=== PATIENT | female | born 1995 | race Caucasian/White ===

== ENCOUNTER 2020-05-14 10:50 | Inpatient (IN) ==
--- NOTE | 2020-05-14 11:27 | History & Physical Report ---
Date of Service May 14, 2020 Assessment & Plan (1) Desires (vaginal after ) trial: Phyllis is a 24 y/o female currently at 40-3/7 WGA with an MELINA 05/11/20 as determined by LMP who is here for IOL and TOLAC. She is GBS+. - Patient's first delivery performed by PLTCS in 05/2018 at [facility] for non- reassuring heart tracings and post-dates. Patient would like to proceed with TOLAC. Benefits, risks, and alternatives to TOLAC discussed extensively in the office. Patient would still like to proceed. Anticipate . - Proceed with IOL with Pitocin protocol - GBS+: Proceed with intrapartum PCN - Patient considering epidural -- has been informed that she can request at any time should she desire further analgesia Blood type: O+, antibody negative Diet: NPO Code: FULL CODE (2) : (3) GBS (group B Streptococcus carrier), +RV culture, currently : History of Present Illness Primary Care Provider: Jeff Cooper Capp, DO Phyllis is a 24 y/o female currently at 40-3/7 WGA with an MELINA 05/11/20 as determined by LMP who is here for IOL and TOLAC. Her has otherwise been uncomplicated. Her first delivery in 2017 was performed via PLTCS at [facility] (see scanned operative report 05/16/2018) in the setting of non-reassuring heart tracings and post-dates. Denies contractions; good movement; denies fluid loss; no bloody show Had regular appointments with OB. Labs: (Date 10/10/19) Blood type: O+ Antibody screen: negative H.8 Hct: 41.2 WBC: 10.3 Plt: 208 Rubella: immune VDRL/RPR: NR Gonorrhea: not detected Chlamydia: not detected HIV: negative HbSAg: negative GBS: POSITIVE SARS-CoV-2 RT-PCR (04/27): Not detected Declined genetic screens, including cff-DNA, CF, SMA Allergies Allergy/AdvReac Type Severity Reaction Status Date / Time propylene glycol Allergy Rash Verified 05/14/20 13:09 Home Medications Home Medications Medication Instructions Recorded Confirmed Type prenat.vits,harshil,ylx-ctis-ncami 1 tab PO DAILY 10/02/19 05/14/20 History Patient History Medical History Encounter for anatomic survey Varicella vaccine Surgical History (Updated 05/14/20 @ 15:29 by Esperanza Grigsby MD) H/O section x1 [place] teeth removed Family History Mother Thyroid disease Preeclampsia Anxiety and depression Social History Smoking Status: Never smoker Second Hand Exposure: No; Hx Alcohol Use: No Hx Substance Use: No Preferred Language: [employer] Required: No Beliefs That Will Affect Care: None marital status: marital status details: Shankar Alexandre (21) [phone] Current Living Situation: Spouse and Family Current Living Situation Comment: lives with and son, 2 dogs current occupational status: unemployed current occupation: homemaker Other Information That Helps Us Care for You: No Feels Safe at Home: Yes Safety Concerns: Feels Safe At This Time Assistive Devices: None Review of Systems no fever, no chills and no sweats denies headache no dyspnea no chest pain, no dyspnea, no dyspnea at rest and no palpitations no dysuria no breast pain Physical Exam Physical Exam: General: Alert, oriented. No acute distress. Cardiac: Regular rate and rhythm, no murmurs/rubs/gallops. Respiratory: Clear to auscultation bilaterally a/p, no wheezes/rales/rhonchi. No increased work of breathing. Symmetrical chest rise. No respiratory distress. Pelvic: Dilation 1 cm; Effacement 25%; Station -[address] Grigsby Lower Extremities: No lower extremity edema or swelling. No deep calf pain. Manuel's negative bilaterally External FHT and external uterine monitors used; Category I tracing; +FHT variability; + accelerations; no decels. Supervising Physician Co-Signing Physician Notes Resident Physician Supervision Note: I interviewed and examined the patient. Discussed with Dr. Grullon and agree with findings and plan as documented in the note. Any exceptions or clarifications are listed here: Hx CSx1, prior LTCS 2/2 NRFHT. consent reviewed yesterday and again today in its entirety. Discussed benefits and risks of successful as well as indications, benefits, risks, alternatives to failed requiring CS with risks including infection, bleeding, injury to adjacent structures (bowel, bladder, ureters, blood vessels, nerves), possible need for life saving hysterectomy. Discussed risk of uterine rupture resulting in maternal and morbidity and mortality, including the above risks associated with CS. Discussed lower success rates with advancing GA. Pt verbalized understanding. Discussed that if she declines CS when recommended, she would be accepting risk of potential injury and/or to her and/or baby. Pt states that she will accept CS if medically recommended. Consent signed by pt, myself, and additional witness. Discussed use of horn bulb and oxytocin. EFW 7-7.5. SVE 08/30-50/-3, BSUS confirms cephalic position. Horn bulb placed, pt tolerated well. Start PCN for GBS+ Documented By: Esperanza Grigsby MD Resident Activity Tracking Resident Involvement: Resident Care Provided Care Provided: Adult Hospital Medicine and OB Delivery
[2020-05-14] MEDS ORDERED: PENICILLIN G POTASSIUM 6 MU in DEXTROSE 5% 250 ML IV STA (14:41)
[2020-05-14] MEDS ORDERED: OXYTOCIN 30 UNITS/500 ML BAG IV PRN (14:41)
[2020-05-14] MEDS: LACTATED RINGER'S 1,000 ML IV PRN ×2 (15:24→23:08)
[2020-05-14] MEDS: OXYTOCIN 30 UNITS/500 ML BAG IV PRN ×3 (15:27→21:45)
[2020-05-14 15:31] LABS: Hematocrit (blood only) 42.1 % (37-47); Hemoglobin 14.1 g/dL (12.0-16.0); Mean Corpuscular Volume 89.6 fL (80-100); Mean Platelet Volume 12.4 fL (7.4-10.4); Platelet Count 180 K/uL (130-400); RDW Coefficient of Variation 13.7 % (11.5-14.5); RDW Standard Deviation 45.3 fL (36.4-46.3); White Blood Count 10.99 K/uL (4.8-10.8)
[2020-05-14 15:40] LABS: Mean Corpuscular Hgb Conc 33.5 g/dL (32-36)
--- NOTE | 2020-05-14 17:05 | Labor Progress Brief Note ---
Date of Service May 14, 2020 Subjective Called to room shortly after 1645 due to decel, pit turned off and resuscitated with maternal repositioning and pit d/c. Subsequently improved to cat 1 tracing, was cat 1 prior to decel Assessment & Plan (1) Desires (vaginal after ) trial: VSS Fetus cat 1 upon improvement Labor - pit off, horn bulb still in place. Will restart pit once improved, continue to monitor GBS +, PCN started Epidural PRN (2) : (3) GBS (group B Streptococcus carrier), +RV culture, currently : Admission and Anticipated Discharge Date Admission Date: May 14, 2020 Physical Exam Constitutional: well developed and well nourished; no acute distress Genitourinary: OB Exam Monitor Tracing: + external FHT monitor used, + external uterine monitor used (irregular) and + category I (145/mod/+accel/- decel --> decel x 2-3 minutes --> 130/mod/+accel/-decel) Results & Data ([facility]) Vital Signs (Past 12 Hours) Vital Signs Temp Pulse Resp BP 05/14/20 16:28 71 103/57 L 05/14/20 15:28 71 112/65 05/14/20 13:03 97.9 F 72 18 120/72 05/14/20 13:02 72 120/72 Coding Level of Care Code None Diagnoses Desires (vaginal after ) trial O34.219 Z34.90 GBS (group B Streptococcus carrier), +RV culture, currently O99.820
--- NOTE | 2020-05-14 19:43 | Labor Progress Brief Note ---
Date of Service May 14, 2020 Subjective Horn bulb out Assessment & Plan (1) Desires (vaginal after ) trial: VSS Fetus cat 2 but reassuring Labor - s/p horn bulb, will augment with pit GBS +, PCN started Epidural PRN (2) : (3) GBS (group B Streptococcus carrier), +RV culture, currently : Admission and Anticipated Discharge Date Admission Date: May 14, 2020 Physical Exam Constitutional: well developed and well nourished; no acute distress Genitourinary: Manual OB Exam: + cervical dilation 3 cm, + cervical effacement 50% and + station -2 OB Exam Monitor Tracing: + external FHT monitor used, + external uterine monitor used (q3-4min) and + category II (135/mod/- accels/intermit variables) Results & Data ([facility]) Vital Signs (Past 12 Hours) Vital Signs Temp Pulse Resp BP 05/14/20 19:29 91 H 100/52 L 05/14/20 19:24 98.2 F 18 05/14/20 18:30 73 98/54 L 05/14/20 17:34 69 99/52 L 05/14/20 16:28 71 103/57 L 05/14/20 15:28 71 112/65 05/14/20 13:03 97.9 F 72 18 120/72 05/14/20 13:02 72 120/72 Coding Level of Care Code None Diagnoses Desires (vaginal after ) trial O34.219 Z34.90 GBS (group B Streptococcus carrier), +RV culture, currently O99.820
[2020-05-14] MEDS: PENICILLIN G POTASSIUM 3 MU in DEXTROSE 5% 100 ML IV PRN (19:50)
--- NOTE | 2020-05-14 22:29 | Labor Progress Brief Note ---
Date of Service May 14, 2020 Subjective Strip note Assessment & Plan (1) Desires (vaginal after ) trial: VSS Fetus cat 2 but reassuring and improved Labor - s/p horn bulb, will augment with pit. Pit was d/c'd once by nursing due to variable, restarted with cat 1 tracing. SVE by nursing reports slightly more dilated. Pit currently at 2 GBS +, PCN started Epidural PRN (2) : (3) GBS (group B Streptococcus carrier), +RV culture, currently : Admission and Anticipated Discharge Date Admission Date: May 14, 2020 Physical Exam Genitourinary: OB Exam Monitor Tracing: + external FHT monitor used, + external uterine monitor used (irreg ) and + category II (135/mod/+accel/rare variables, reassuring) Results & Data ([facility]) Vital Signs (Past 12 Hours) Vital Signs Temp Pulse Resp BP Pulse Ox 05/14/20 22:15 99.0 F 76 90/52 L 05/14/20 22:14 18 05/14/20 21:39 72 103/50 L 05/14/20 21:26 75 97 05/14/20 21:21 74 96 05/14/20 21:16 72 95 05/14/20 21:12 74 94 05/14/20 21:11 76 95 05/14/20 21:06 79 95 05/14/20 21:01 79 96 05/14/20 20:56 83 97 05/14/20 20:51 78 98 05/14/20 20:46 65 97 05/14/20 20:41 70 96 05/14/20 20:40 70 18 101/58 L 05/14/20 20:13 85 18 134/74 05/14/20 19:29 91 H 100/52 L 05/14/20 19:24 98.2 F 18 05/14/20 18:30 73 98/54 L 05/14/20 17:34 69 99/52 L 05/14/20 16:28 71 103/57 L 05/14/20 15:28 71 112/65 05/14/20 13:03 97.9 F 72 18 120/72 05/14/20 13:02 72 120/72 Coding Level of Care Code None Diagnoses Desires (vaginal after ) trial O34.219 Z34.90 GBS (group B Streptococcus carrier), +RV culture, currently O99.820
[2020-05-15] MEDS: PENICILLIN G POTASSIUM 3 MU in DEXTROSE 5% 100 ML IV PRN ×2 (00:09→03:34)
--- NOTE | 2020-05-15 02:48 | Labor Progress Brief Note ---
Date of Service May 15, 2020 Subjective Presented to room for cervical check. Nursing reports that patient underwent spontaneous rupture approximately 12:30AM, pt reports ctx worsened after Assessment & Plan (1) Desires (vaginal after ) trial: VSS Fetus cat 2 but improving Labor - s/p horn bulb, pit was at 3 with cat 2 tracing. Pit was d/c'd while patient had prolonged time in bathroom prior to forebag rupture. Following forebag rupture, large decel was noted to 60s with recovery by repositioning and O2. FSE and IUPC were placed at that time for more accurate monitoring. Will continue to monitor, restart pit if MVUs inadequate GBS +, PCN started Epidural PRN (2) : (3) GBS (group B Streptococcus carrier), +RV culture, currently : Admission and Anticipated Discharge Date Admission Date: May 14, 2020 Physical Exam Genitourinary: Manual OB Exam: + cervical dilation 4 cm, + cervical effacement 70%, + station -1 and + amniotic fluid (AROM forebag) clear OB Exam Monitor Tracing: + external FHT monitor used, + scalp electrode used (placed at this time), + external uterine monitor used (irreg ), + intra-uterine pressure catheter used (placed at this time) and + category II (135- 145/mod/+accel/intermit variables) Pit was turned off prior to forebag rupture due to prolonged time in bathroom. Large decel to 60s following forebag rupture, recovered with repositioning and O2 Results & Data ([facility]) Vital Signs (Past 12 Hours) Vital Signs Temp Pulse Resp BP Pulse Ox 05/15/20 02:34 71 101/54 L 05/15/20 02:31 98.1 F 18 05/14/20 23:52 74 99/54 L 05/14/20 23:03 74 99/50 L 05/14/20 22:15 99.0 F 76 90/52 L 05/14/20 22:14 18 05/14/20 21:39 72 103/50 L 05/14/20 21:26 75 97 05/14/20 21:21 74 96 05/14/20 21:16 72 95 05/14/20 21:12 74 94 05/14/20 21:11 76 95 05/14/20 21:06 79 95 05/14/20 21:01 79 96 05/14/20 20:56 83 97 05/14/20 20:51 78 98 05/14/20 20:46 65 97 05/14/20 20:41 70 96 05/14/20 20:40 70 18 101/58 L 05/14/20 20:13 85 18 134/74 05/14/20 19:29 91 H 100/52 L 05/14/20 19:24 98.2 F 18 05/14/20 18:30 73 98/54 L 05/14/20 17:34 69 99/52 L 05/14/20 16:28 71 103/57 L 05/14/20 15:28 71 112/65 Coding Level of Care Code None Diagnoses Desires (vaginal after ) trial O34.219 Z34.90 GBS (group B Streptococcus carrier), +RV culture, currently O99.820
[2020-05-15] MEDS: OXYTOCIN 30 UNITS/500 ML BAG IV PRN (03:37)
--- NOTE | 2020-05-15 04:39 | Labor Progress Brief Note ---
Date of Service May 15, 2020 Subjective Breathing through contractions Assessment & Plan (1) Desires (vaginal after ) trial: VSS Fetus cat 2 Labor - s/p horn bulb, pit at 2 with internal monitors. Discussed obtaining epidural to possibly help with progressing, pt will consider with next check if unchanged. Discussed measures and concerns regarding progression of labor, pt verbalized understanding GBS +, PCN per protocol Epidural PRN (2) : (3) GBS (group B Streptococcus carrier), +RV culture, currently : Admission and Anticipated Discharge Date Admission Date: May 14, 2020 Physical Exam Genitourinary: Manual OB Exam: + cervical dilation 4 cm, + cervical effacement 70%, + station -1 and + amniotic fluid meconium OB Exam Monitor Tracing: + scalp electrode used (placed at this time), + intra-uterine pressure catheter used (placed at this time) and + category II (135-145/mod/-accel/early and variable decels) Results & Data ([facility]) Vital Signs (Past 12 Hours) Vital Signs Temp Pulse Resp BP Pulse Ox 05/15/20 04:20 78 102/59 L 05/15/20 03:43 71 99/66 L 05/15/20 02:34 71 101/54 L 05/15/20 02:31 98.1 F 18 05/14/20 23:52 74 99/54 L 05/14/20 23:03 74 99/50 L 05/14/20 22:15 99.0 F 76 90/52 L 05/14/20 22:14 18 05/14/20 21:39 72 103/50 L 05/14/20 21:26 75 97 05/14/20 21:21 74 96 05/14/20 21:16 72 95 05/14/20 21:12 74 94 05/14/20 21:11 76 95 05/14/20 21:06 79 95 05/14/20 21:01 79 96 05/14/20 20:56 83 97 05/14/20 20:51 78 98 05/14/20 20:46 65 97 05/14/20 20:41 70 96 05/14/20 20:40 70 18 101/58 L 05/14/20 20:13 85 18 134/74 05/14/20 19:29 91 H 100/52 L 05/14/20 19:24 98.2 F 18 05/14/20 18:30 73 98/54 L 05/14/20 17:34 69 99/52 L Coding Level of Care Code None Diagnoses Desires (vaginal after ) trial O34.219 Z34.90 GBS (group B Streptococcus carrier), +RV culture, currently O99.820
[2020-05-15] MEDS ORDERED: ePHEDrine sulfate 50 MG/ML AMP ONE (05:24)
[2020-05-15] MEDS ORDERED: fentaNYL 2MCG/ML ROPIVACAINE 1.25MG/ML 100 ML BAG EPI ONE (05:25)
[2020-05-15] MEDS ORDERED: BUPIVACAINE 0.25% 30 ML VIAL ONE (05:25)
[2020-05-15] MEDS ORDERED: fentaNYL citrate 100 MCG/2 ML VIAL ONE ×2 (05:25→07:49)
[2020-05-15] MEDS ORDERED: NALOXONE HCL 0.4 MG/1 ML VIAL/CARP IV PRN ×2 (05:33→09:09)
[2020-05-15] MEDS ORDERED: NALOXONE HCL 1 MG in SODIUM CHLORIDE 0.9% 1000ML 1,000 ML IV PRN ×2 (05:33→09:09)
[2020-05-15] MEDS ORDERED: ePHEDrine sulfate 50 MG/ML AMP IV PRN ×2 (05:33→09:09)
[2020-05-15] MEDS ORDERED: diphenhydrAMINE 50 MG/ML VIAL IV PRN ×2 (05:33→09:09)
[2020-05-15] MEDS ORDERED: fentaNYL 2MCG/ML ROPIVACAINE 1.25MG/ML 100 ML BAG EPI PRN (05:33)
[2020-05-15] MEDS ORDERED: ONDANSETRON INJ 2 MG/ML 2 ML VIAL IV PRN ×3 (05:33→09:21)
--- NOTE | 2020-05-15 05:37 | Anesthesiology Consultation ---
Date of Service May 15, 2020 Assessment & Plan (1) Encounter for pre-operative examination: Chart Review Chart Review: Patient NOT seen in Pre Admission Testing and Acceptable Risk for Labor Epidural Consults Requested none History Surgery Operation Date: 05/17/20 07:30 Proposed Procedures p Section in LD - Tomasz Muhammad MD Height/Weight Height: 5 ft 0.5 in Weight: 86.183 kg Allergies Allergy/AdvReac Type Severity Reaction Status Date / Time propylene glycol Allergy Rash Verified 05/14/20 13:09 Medications Home Medications Medication Instructions Recorded Confirmed Last Taken prenat.vits,harshil,oee-becl-hldkb 1 tab PO DAILY 10/02/19 05/14/20 05/14/20 08:30 Active Medications Generic Name Dose Route Start Last Admin Trade Name Freq PRN Reason Stop Dose Admin Lactated Ringer's 1,000 mls @ 125 mls/hr 05/14/20 14:41 05/14/20 23:08 Lr IV 05/16/20 14:40 125 mls/hr .Q8H PRN Administration L&D Protocol Protocol Penicillin G Potassium 3 mu/ 106 mls @ 100 mls/hr 05/14/20 14:41 05/15/20 03:34 Dextrose IV 05/24/20 14:40 100 mls/hr Q4H PRN Administration Give until delivery Oxytocin 30 units in 500 mls @ 2 mls/hr 05/14/20 14:41 05/15/20 04:11 Pitocin IV 05/16/20 14:40 0.12 units/hr .Q24H PRN 2 mls/hr Labor Induction/Augmentation Titration Protocol 0.12 UNITS/HR Past Medical History Medical History Encounter for anatomic survey Varicella vaccine Exercise / Class Metabolic Activity II 4-5 Yardwork/Stairs/Walk up hill Past Family History Family History Mother Thyroid disease Preeclampsia Anxiety and depression Past Surgical History Surgical History H/O section x1 [place] teeth removed Past Anesthesia History No Hx of Anesthesia Complications and No Family Hx of Anesthesia Complications History of PONV No Hx of PONV and No Hx of Motion Sickness Social History Smoking Status: Never smoker Do You Dip or Chew Tobacco: No Hx Alcohol Use: No Hx Substance Use: No substance use type: does not use Physical Exam Vital Signs Last Vital Signs Temp 36.7 C 05/15/20 02:31 Pulse 78 05/15/20 04:20 Resp 18 05/15/20 02:31 BP 102/59 L 05/15/20 04:20 Pulse Ox 97 05/14/20 21:26 Testing Laboratory Results 05/14/20 14:54 Blood Type O Positive 05/14/20 14:54 Antibody Screen NEGATIVE 05/14/20 14:54
--- NOTE | 2020-05-15 05:48 | Labor Progress Brief Note ---
Date of Service May 15, 2020 Subjective Breathing through contractions Assessment & Plan (1) Desires (vaginal after ) trial: VSS Fetus cat 2 Labor - s/p horn bulb, with SVE unchanged pt amenable to epidural. pit was d /c'd due to decel following exam, previously off immediately following AROM but recovered. Discussed that if this pattern continues, will recommend CS. Epidural would possibly facilitate pt being able to stay awake during CS if needed as well. Pt verbalized understanding. Anesthesia made aware GBS +, PCN per protocol Epidural PRN (2) : (3) GBS (group B Streptococcus carrier), +RV culture, currently : Admission and Anticipated Discharge Date Admission Date: May 14, 2020 Physical Exam Genitourinary: Manual OB Exam: + cervical dilation 4 cm, + cervical effacement 70%, + station -1 and + amniotic fluid meconium OB Exam Monitor Tracing: + scalp electrode used, + intra-uterine pressure catheter used and + category II (140/mod/-accel/early and variable decels) Results & Data ([facility]) Vital Signs (Past 12 Hours) Vital Signs Temp Pulse Resp BP Pulse Ox 05/15/20 05:37 78 122/66 05/15/20 04:20 78 102/59 L 05/15/20 03:43 71 99/66 L 05/15/20 02:34 71 101/54 L 05/15/20 02:31 98.1 F 18 05/14/20 23:52 74 99/54 L 05/14/20 23:03 74 99/50 L 05/14/20 22:15 99.0 F 76 90/52 L 05/14/20 22:14 18 05/14/20 21:39 72 103/50 L 05/14/20 21:26 75 97 05/14/20 21:21 74 96 05/14/20 21:16 72 95 05/14/20 21:12 74 94 05/14/20 21:11 76 95 05/14/20 21:06 79 95 05/14/20 21:01 79 96 05/14/20 20:56 83 97 05/14/20 20:51 78 98 05/14/20 20:46 65 97 05/14/20 20:41 70 96 05/14/20 20:40 70 18 101/58 L 05/14/20 20:13 85 18 134/74 05/14/20 19:29 91 H 100/52 L 05/14/20 19:24 98.2 F 18 05/14/20 18:30 73 98/54 L Coding Level of Care Code None Diagnoses Desires (vaginal after ) trial O34.219 Z34.90 GBS (group B Streptococcus carrier), +RV culture, currently O99.820
[2020-05-15] MEDS ORDERED: ceFAZolin 2000MG 2,000 MG/15 ML SYR IV SCH (06:00)
[2020-05-15] MEDS: LACTATED RINGER'S 1,000 ML IV PRN (06:58)
--- NOTE | 2020-05-15 07:43 | Labor Progress Brief Note ---
Date of Service May 15, 2020 Subjective Comfortable with epidural Assessment & Plan (1) Desires (vaginal after ) trial: While in to check patient, decel was noted. With 2/3 prior contractions, significant late decel was noted. SVE was unchanged. Pitocin discontinued. Discussed with pt that would recommend repeat CS as this is repeated attempts to augment labor and intolerance is noted without significant cervical change. Discussed risks including infection, bleeding, injury to adjacent structures (bowel, bladder, ureters, blood vessels, nerves), possible need for blood transfusion and/or life saving hysterectomy. Pt and verbalized understanding. Consents reviewed and signed. Ancef and azithro ordered to OR. Anesthesia made aware. (2) : (3) GBS (group B Streptococcus carrier), +RV culture, currently : Admission and Anticipated Discharge Date Admission Date: May 14, 2020 Physical Exam Genitourinary: Manual OB Exam: + cervical dilation 4 cm, + cervical effacement 70%, + station -1 and + amniotic fluid meconium OB Exam Monitor Tracing: + external FHT monitor used, + intra-uterine pressure catheter used and + category II (135/mod/-accel/late decels ) Results & Data ([facility]) Vital Signs (Past 12 Hours) Vital Signs Temp Pulse Resp BP Pulse Ox 05/15/20 07:37 82 100 05/15/20 07:35 155 H 90/54 L 05/15/20 07:32 127 H 100 05/15/20 07:27 72 99 05/15/20 07:22 70 97 05/15/20 07:20 66 94/50 L 05/15/20 07:17 68 99 05/15/20 07:12 60 98 05/15/20 07:07 72 93/52 L 98 05/15/20 07:02 76 98 05/15/20 06:57 69 98 05/15/20 06:52 70 98 05/15/20 06:50 69 100/50 L 05/15/20 06:47 70 97 05/15/20 06:43 97.9 F 18 05/15/20 06:42 73 98 05/15/20 06:37 73 100 05/15/20 06:35 69 113/53 L 05/15/20 06:32 88 100 05/15/20 06:30 65 112/54 L 05/15/20 06:27 66 100 05/15/20 06:22 69 109/57 L 100 05/15/20 06:19 72 102/63 05/15/20 06:17 73 99 05/15/20 06:16 78 101/59 L 05/15/20 06:13 71 101/55 L 05/15/20 06:12 77 99 05/15/20 06:11 80 99/52 L 05/15/20 06:10 77 98/46 L 05/15/20 06:07 80 118/56 L 100 05/15/20 06:04 76 112/58 L 05/15/20 06:02 76 115/55 L 100 05/15/20 06:01 78 125/56 L 05/15/20 05:57 79 100 05/15/20 05:56 89 118/59 L 05/15/20 05:55 84 120/58 L 05/15/20 05:53 73 120/62 05/15/20 05:52 74 100 05/15/20 05:50 74 114/60 05/15/20 05:48 71 136/59 L 05/15/20 05:47 82 100 05/15/20 05:42 80 100 05/15/20 05:37 80 122/66 99 05/15/20 04:20 78 102/59 L 05/15/20 03:43 71 99/66 L 05/15/20 02:34 71 101/54 L 05/15/20 02:31 98.1 F 18 05/14/20 23:52 74 99/54 L 05/14/20 23:03 74 99/50 L 05/14/20 22:15 99.0 F 76 90/52 L 05/14/20 22:14 18 05/14/20 21:39 72 103/50 L 05/14/20 21:26 75 97 05/14/20 21:21 74 96 05/14/20 21:16 72 95 05/14/20 21:12 74 94 05/14/20 21:11 76 95 05/14/20 21:06 79 95 05/14/20 21:01 79 96 05/14/20 20:56 83 97 05/14/20 20:51 78 98 05/14/20 20:46 65 97 05/14/20 20:41 70 96 05/14/20 20:40 70 18 101/58 L 05/14/20 20:13 85 18 134/74 Coding Level of Care Code None Diagnoses Desires (vaginal after ) trial O34.219 Z34.90 GBS (group B Streptococcus carrier), +RV culture, currently O99.820
[2020-05-15] MEDS ORDERED: LIDOCAINE/EPINEPHRINE 2% 1:200,000 20 ML SDV ONE (07:48)
[2020-05-15] MEDS ORDERED: AZITHROMYCIN 500 MG in DEXTROSE 5% 250 ML IV ONE (08:00)
[2020-05-15] MEDS ORDERED: OXYTOCIN 10 UNITS/ML VIAL ONE ×5 (08:00→09:00)
[2020-05-15] MEDS ORDERED: ONDANSETRON INJ 2 MG/ML 2 ML VIAL ONE (08:42)
[2020-05-15] MEDS ORDERED: PHENYLEPHRINE 100MCG/ML 5ML SYR ONE (08:42)
[2020-05-15] MEDS ORDERED: MoRPHine SULFATE PF 1 MG/ML 10 ML AMP/VIAL ONE (08:59)
[2020-05-15] MEDS ORDERED: NALOXONE HCL 0.08 MG in SYRINGE 1.8 ML IV PRN (09:09)
[2020-05-15] MEDS ORDERED: KETOROLAC 30 MG/ML VIAL IV PRN (09:09)
[2020-05-15] MEDS ORDERED: PROMETHAZINE HCL 25 MG in SODIUM CHLORIDE 0.9% 50 ML IV PRN (09:09)
[2020-05-15] MEDS ORDERED: LACTATED RINGER'S 500 ML IV PRN (09:09)
[2020-05-15] MEDS ORDERED: MoRPHine SULFATE PF 1 MG/ML 10 ML AMP/VIAL EPI ONE (09:09)
--- NOTE | 2020-05-15 09:09 | Anesthesia Procedure Note ---
Date of Service May 15, 2020 Anesthesia Post Epidural Note Vital Signs Vital Signs: Temp Pulse Resp BP Pulse Ox 36.6 C 86 18 132/65 100 05/15/20 06:43 05/15/20 08:05 05/15/20 06:43 05/15/20 08:05 05/15/20 07:57 Notes Mental Status: alert / awake / arousable Nausea / Vomiting: adequately controlled Pain: adequately controlled Airway Patency, RR, SpO2: stable & adequate BP & HR: stable & adequate Hydration State: stable & adequate Neuraxial Anesthesia: was administered and sensory block is resolving Anesthetic Complications: no major complications apparent Epidural: Removed without complications and With tip intact
[2020-05-15] MEDS ORDERED: SODIUM CHLORIDE 0.9% 1000ML 1,000 ML IV SCH (09:15)
[2020-05-15] MEDS ORDERED: NO NARCOTICS OR SEDATIVES SCH (09:15)
[2020-05-15] MEDS ORDERED: BENZOCAINE 20% AER SPR 82.5 GM CAN EXT PRN (09:21)
[2020-05-15] MEDS ORDERED: SUPERCREAM 0.870% 15 GM JAR EXT PRN (09:21)
[2020-05-15] MEDS ORDERED: HYDROCORTISONE ACETATE 25 MG SUPP PR PRN (09:21)
[2020-05-15] MEDS ORDERED: LACTATED RINGER'S 1,000 ML IV SCH (09:21)
[2020-05-15] MEDS ORDERED: SENNA 8.6 MG TAB PO PRN (09:21)
[2020-05-15] MEDS ORDERED: DIPHTHERIA/TETANUS/PERTUSSIS 0.5 ML SYR/VIAL IM ONE (09:21)
--- NOTE | 2020-05-15 09:35 | Operative Report ---
PG Post Operative Report Pre & Post Diagnosis Operation Date: 05/15/20 07:50 Pre-Op Diagnosis: Single intrauterine at 40w4d Non reassuring heart tones. Inability to augment. Trial of labor after section. Post-Op Diagnosis: Single intrauterine at 40w4d Non reassuring heart tones. Inability to augment. Failed trial of labor after section. Delivery of live male child at 0827 Operation Date: 05/17/20 07:30 <No data on this case meets the specified criteria> I identified the patient and participated in the time-out.: Yes Procedure Operation Date: 05/15/20 07:50 Actual Procedures p Repeat Section in LD(Bilateral) - Esperanza Grigsby MD Operation Date: 05/17/20 07:30 <No data on this case meets the specified criteria> Surgeon Esperanza Grigsby MD Conductor/Brakeman Marika Turcios MD Estimated Blood Loss 700 Findings Consistent with Post-Op Diagnosis Thick meconium fluid upon entry into uterine cavity. Normal appearing uterus, bilateral fallopian tubes and ovaries. Uterus noted to have serosal hematoma at L aspect of hysterotomy that remained stable for the duration of the case. De nse fascial/rectus muscle adhesions. Viable male infant weighing 7lbs 7oz with APGARs of 9,9 Specimens Placenta Drains Horn draining clear urine Anesthesia Type L&D Only Epidural Exists Complications none Disposition Accompanied Patient To Recovery: Yes Disposition: L&D Indications 24 y/o at 40w4d GA w/ MELINA 05/11/20 by LMP presented one day ago for trial of labor after IOL. She had previously been extensively counseled regarding indications, risks, benefits, alternatives to TOLAC and she did desire to proceed, please see prior notes for details. Induction was begun with horn bulb and oxytocin. PCN was given for GBS+ status. Following horn bulb expulsion, oxytocin was titrated per protocol. She underwent spontaneous rupture of membranes. Oxytocin was discontinued once due to decel. Following this, forebag was noted and AROM was performed. Oxytocin was restarted however again required discontinuation due to decel. Epidural was obtained and oxytocin was restarted again however recurrent late decels were noted. SVE was unchanged from prior exams and patient was counseled for repeat due to NRFHT and inability to augment. Consent was again reviewed and signed. Description of Procedure The patient was taken to the operating room after consents were ensured. The patient was properly identified. Epidural anesthesia was bolused. The patient was placed in a dorsal supine position with left lateral tilt. The patient was prepped and draped in normal sterile fashion. Anesthesia was tested to ensure adequate surgical levels. Ancef and azithromycin were given for antibiotic prophylaxis. Pfannenstiel skin incision was performed using prior scar and carried down to the underlying fascia with a knife. The fascia was then nicked in the midline and extended laterally with pickscar and Sorto scissors. The superior portion of the fascia was grasped with Kochers x2 and elevated off the underlying rectus muscles using blunt and sharp dissection due to scarring. The inferior portion of the fascia was then grasped with Aisha clamps x2 and also elevated off the underlying muscles with blunt dissection. Midline was then identified and . The peritoneum was then entered bluntly and extended to provide adequate room for delivery of baby. The hand was inserted into the abdomen, uterus was noted to be clear of adhesions. Bladder blade was inserted. Bladder flap was created in the normal fashion. A low transverse uterine incision was then made in the uterus and extended bluntly in a superior to inferior fashion. Thick meconium noted upon entry. head was grasped and elevated through the hysterotomy in an atraumatic fashion. The baby delivered in JOE position, no nuchal cord. Remainder of the body delivered without incident. Nose and mouth were bulb suctioned on the surgical field. Delayed cord clamping was deferred. The cord was double clamped and cut and baby was handed off to awaiting NICU staff. Cord segment and blood were obtained. Placenta was then expressed from the uterus. The uterus was exteriorized. Several passes were made inside the uterus to remove the remaining membranes. Attention was then turned to the hysterotomy, which was then closed with a running locked suture of 0 Vicryl on a CTX needle. Imbricating layer was performed with 0 Monocryl. There was noted to be good hemostasis. The posterior cul-de-sac was then inspected and irrigated and cleaned of clot and debris. The hysterotomy was again inspected and noted to be hemostatic. The uterus was returned to the abdomen. The right and left pericolic gutters were cleaned of all clot and debris. The hysterotomy was again noted to be hemostatic. Space of Retzius was noted to be hemostatic. The fascia was then closed with a running suture of 0 Vicryl on a CT1 needle. Subcutaneous tissue was copiously irrigated and noted to be hemostatic. Subcutaneous tissue was re-approximated using 2-0 plain gut. The skin was then closed with a running suture of 3-0 Monocryl in a subcuticular fashion. At termination of the procedure, the fundal pressure was applied and a moderate amount of lochia was expressed. Pressure dressing was applied to the patient. She tolerated the procedure well. All sponge, needle, and instrument counts correct x 2 I attest to the content of the Intraoperative Record and any orders documented therein. Any exceptions are noted below.
[2020-05-15] MEDS ORDERED: OXYTOCIN 20 UNITS in LACTATED RINGER'S 1,000 ML IV SCH (12:00)
--- NOTE | 2020-05-15 12:52 | Anesthesiology Progress Note ---
Date of Service May 15, 2020 Anesthesia Post Procedure Vital Signs Vital Signs: Temp Pulse Resp BP Pulse Ox 05/15/20 11:52 84 105/51 L 05/15/20 11:48 79 100 05/15/20 11:43 81 100 05/15/20 11:42 80 105/57 L 05/15/20 11:38 74 100 05/15/20 11:33 86 99 05/15/20 11:32 73 102/50 L 05/15/20 11:28 77 99 05/15/20 11:24 83 112/53 L 05/15/20 11:23 82 100 05/15/20 11:18 81 100 05/15/20 11:15 20 05/15/20 11:13 84 100 05/15/20 11:09 86 91 05/15/20 11:08 84 98 05/15/20 11:03 80 100 05/15/20 11:02 78 114/58 L 05/15/20 10:58 83 100 05/15/20 10:53 86 100 05/15/20 10:52 86 114/63 91 05/15/20 10:48 68 100 05/15/20 10:43 73 100 05/15/20 10:42 70 107/55 L 05/15/20 10:38 66 100 05/15/20 10:36 68 92 05/15/20 10:33 70 94 05/15/20 10:32 69 114/59 L 05/15/20 10:28 81 100 05/15/20 10:23 73 100 05/15/20 10:22 60 111/55 L 05/15/20 10:18 65 100 05/15/20 10:15 36.2 C L 18 05/15/20 10:13 62 100 05/15/20 10:12 65 113/59 L 05/15/20 10:08 65 100 05/15/20 10:05 36.2 C L 18 05/15/20 10:03 67 100 05/15/20 10:02 66 113/57 L 05/15/20 09:58 71 100 05/15/20 09:55 18 05/15/20 09:53 77 100 05/15/20 09:52 78 116/55 L 05/15/20 09:48 77 100 05/15/20 09:45 18 05/15/20 09:43 69 99 05/15/20 09:42 71 116/55 L 05/15/20 09:38 67 99 05/15/20 09:35 18 05/15/20 09:33 61 99 05/15/20 09:31 66 112/52 L 05/15/20 09:28 71 100 05/15/20 09:27 71 99/45 L 05/15/20 09:24 91 H 164/80 H 05/15/20 09:23 80 97 05/15/20 09:22 75 62/46 L 05/15/20 09:18 80 97 05/15/20 09:16 74 89/50 L 05/15/20 09:15 36.0 C L 18 05/15/20 09:14 86 186/127 H 05/15/20 09:13 81 93 05/15/20 08:05 86 132/65 05/15/20 08:02 96 H 132/61 05/15/20 07:57 76 100 05/15/20 07:55 72 127/69 05/15/20 07:52 86 100 05/15/20 07:47 82 100 05/15/20 07:42 80 100 05/15/20 07:37 82 100 05/15/20 07:35 155 H 90/54 L 05/15/20 07:32 127 H 100 05/15/20 07:27 72 99 05/15/20 07:22 70 97 05/15/20 07:20 66 94/50 L 05/15/20 07:17 68 99 05/15/20 07:12 60 98 05/15/20 07:07 72 93/52 L 98 05/15/20 07:02 76 98 05/15/20 06:57 69 98 05/15/20 06:52 70 98 05/15/20 06:50 69 100/50 L 05/15/20 06:47 70 97 05/15/20 06:43 36.6 C 18 05/15/20 06:42 73 98 05/15/20 06:37 73 100 05/15/20 06:35 69 113/53 L 05/15/20 06:32 88 100 05/15/20 06:30 65 112/54 L 05/15/20 06:27 66 100 05/15/20 06:22 69 109/57 L 100 05/15/20 06:19 72 102/63 05/15/20 06:17 73 99 05/15/20 06:16 78 101/59 L 05/15/20 06:13 71 101/55 L 05/15/20 06:12 77 99 05/15/20 06:11 80 99/52 L 05/15/20 06:10 77 98/46 L 05/15/20 06:07 80 118/56 L 100 05/15/20 06:04 76 112/58 L 05/15/20 06:02 76 115/55 L 100 05/15/20 06:01 78 125/56 L 05/15/20 05:57 79 100 05/15/20 05:56 89 118/59 L 05/15/20 05:55 84 120/58 L 05/15/20 05:53 73 120/62 05/15/20 05:52 74 100 05/15/20 05:50 74 114/60 05/15/20 05:48 71 136/59 L 05/15/20 05:47 82 100 05/15/20 05:42 80 100 05/15/20 05:37 80 122/66 99 05/15/20 04:20 78 102/59 L 05/15/20 03:43 71 99/66 L 05/15/20 02:34 71 101/54 L 05/15/20 02:31 36.7 C 18 05/14/20 23:52 74 99/54 L 05/14/20 23:03 74 99/50 L 05/14/20 22:15 37.2 C 76 90/52 L 05/14/20 22:14 18 05/14/20 21:39 72 103/50 L 05/14/20 21:26 75 97 05/14/20 21:21 74 96 05/14/20 21:16 72 95 05/14/20 21:12 74 94 05/14/20 21:11 76 95 05/14/20 21:06 79 95 05/14/20 21:01 79 96 05/14/20 20:56 83 97 05/14/20 20:51 78 98 05/14/20 20:46 65 97 05/14/20 20:41 70 96 05/14/20 20:40 70 18 101/58 L 05/14/20 20:13 85 18 134/74 05/14/20 19:29 91 H 100/52 L 05/14/20 19:24 36.8 C 18 05/14/20 18:30 73 98/54 L 05/14/20 17:34 69 99/52 L 05/14/20 16:28 71 103/57 L 05/14/20 15:28 71 112/65 05/14/20 13:03 36.6 C 72 18 120/72 05/14/20 13:02 72 120/72 Transfer of Care Handoff Completed per policy Notes Mental Status: alert / awake / arousable Patient Amnestic to Procedure: Yes Nausea / Vomiting: adequately controlled Pain: adequately controlled Airway Patency, RR, SpO2: stable & adequate BP & HR: stable & adequate Hydration State: stable & adequate Neuraxial Anesthesia: was administered and sensory block is resolving Anesthetic Complications: no major complications apparent
[2020-05-15] MEDS: SIMETHICONE 80 MG CHEW PO SCH (17:54)
[2020-05-16 06:40] LABS: Basophils # (auto) 0.02 K/uL (0-0.2); Basophils % (auto) 0.1 %; Eosinophils # (auto) 0.08 K/uL (0-0.5); Eosinophils % (auto) 0.5 %; Hematocrit (blood only) 37.9 % (37-47); Hemoglobin 12.2 g/dL (12.0-16.0); Immature Granulocytes # (auto) 0.05 K/uL (0.00-0.02); Immature Granulocytes % (auto) 0.3 %; Lymphocytes # (auto) 2.48 K/uL (1.2-3.4); Lymphocytes % (auto) 15.4 %; Mean Corpuscular Hemoglobin 29.3 pg (25-34); Mean Corpuscular Hgb Conc 32.2 g/dL (32-36); Mean Corpuscular Volume 90.9 fL (80-100); Monocytes # (auto) 1.59 K/uL (0.11-0.59); Monocytes % (auto) 9.9 %; Neutrophils # (auto) 11.85 K/uL (1.4-6.5); Neutrophils % (auto) 73.8 %; Platelet Count 149 K/uL (130-400); RDW Coefficient of Variation 14.3 % (11.5-14.5); RDW Standard Deviation 46.4 fL (36.4-46.3); Red Blood Count 4.17 M/uL (4.2-5.4); White Blood Count 16.07 K/uL (4.8-10.8)
[2020-05-16] MEDS ORDERED: PRENATAL VITAMIN 1 TAB PO SCH (08:00)
[2020-05-16] MEDS: FERROUS SULFATE 325 MG TAB PO SCH (08:59)
[2020-05-16] MEDS ORDERED: IBUPROFEN 600 MG TAB PO PRN (09:00)
[2020-05-16] MEDS ORDERED: oxyCODONE/ACETAMINOPHEN 5mg/325mg TAB PO PRN (09:08)
--- NOTE | 2020-05-16 09:08 | Obstetrical Progress Note ---
Date of Service May 16, 2020 Assessment & Plan (1) delivery delivered: failed tolac. Doing well. Routine pp care. Encourage ambulation. Monitor breast feeding. h/h good. Day #:: 1 Subjective Ambulation: limited ambulation Voiding: no voiding problems Passing Gas:: Yes Diet Tolerance:: regular diet Lochia:: Small Feeding Type:: breast feeding pain controlled Physical Exam Constitutional WD/WN, vitals as above Respiratory normal respiratory effort, lungs clear to auscultation Cardiovascular RRR, no murmur, no edema Gastrointestinal (Abdomen) soft, nt, nd. ff/nt at u. incision --c/d/i Psychiatric A+Ox3, euthymic affect Results & Data ([facility]) Vital Signs (Past 12 Hours) Vital Signs Temp Pulse Resp BP Pulse Ox 05/16/20 04:00 36.9 C 84 18 102/67 97 05/16/20 01:57 18 95 05/16/20 01:30 18 97 05/16/20 00:30 18 95 05/16/20 00:00 37.4 C 102 H 18 120/71 95 05/15/20 23:29 18 94 05/15/20 22:00 18
[2020-05-16] MEDS: SIMETHICONE 80 MG CHEW PO SCH ×4 (09:09→20:46)
[2020-05-16] MEDS ORDERED: DC INTRASPINAL MORPHINE SCH (09:14)
[2020-05-16] MEDS ORDERED: KETOROLAC 30 MG/ML VIAL IV PRN (09:15)
[2020-05-16] MEDS ORDERED: MEPERIDINE HCL 50 MG/ML CARP IV PRN (09:15)
[2020-05-16] MEDS ORDERED: diphenhydrAMINE 50 MG/ML VIAL IV PRN (09:15)
[2020-05-16] MEDS ORDERED: PROMETHAZINE HCL 25 MG in SODIUM CHLORIDE 0.9% 50 ML IV PRN (09:15)
[2020-05-16] MEDS ORDERED: diphenhydrAMINE Capsule 25 MG CAP PO PRN (09:15)
[2020-05-16] MEDS: MULTIVITAMIN CHEWABLE TAB PO SCH (12:01)
[2020-05-16] MEDS ORDERED: DOCUSATE SODIUM 100 MG CAP PO ONE (19:49)
[2020-05-16] MEDS ORDERED: bisacodyL 5 MG TABEC PO SCH (20:00)
[2020-05-16] MEDS: DOCUSATE SODIUM 100 MG CAP PO SCH (20:46)
[2020-05-17] MEDS ORDERED: IBUPROFEN 200 MG/10 ML UDC PO PRN (04:55)
[2020-05-17 06:22] LABS: Hematocrit (blood only) 37.9 % (37-47); Hemoglobin 12.5 g/dL (12.0-16.0)
--- NOTE | 2020-05-17 06:23 | Obstetrical Progress Note ---
Date of Service <Stanislaw Grullon MD - Last Filed: 05/17/20 06:57> May 17, 2020 Assessment & Plan <Stanislaw Grullon MD - Last Filed: 05/17/20 06:57> (1) delivery delivered: Phyllis is a 24 y/o female who is POD #2 following repeat LTCS following failed TOLAC on 05/15 at 40 WGA. - Feels well today. Eating well, voiding well, ambulating well. - Pain well controlled with ibuprofen 600mg Q4H PRN. - Routine post-operative care -- continue to promote OOB and ambulation - After discharge will have [address] Grigsby Code: Full code Subjective <Stanislaw Grullon MD - Last Filed: 05/17/20 06:57> Phyllis is a 24 y/o female who is POD #2 following repeat LTCS following failed TOLAC on 05/15 at 40 WGA. She reports feeling well overall this morning. Endorses some abdominal cramping that is well managed on analgesics. Voiding without difficulty. Tolerating meals overnight and able to ambulate some. Endorses passing gas but not yet bowel movements. Has some persistent lochia with some improvement this morning. Currently breast feeding. Review of Systems Denies fever, chills, sweats Denies shortness of breath, difficulty breathing, chest pain, palpitations, chest pressure. Denies breast pain. Denies dysuria. Denies headache or changes in vision. Physical Exam <Stanislaw Grullon MD - Last Filed: 05/17/20 06:57> General: Alert, oriented. No acute distress. Cardiac: Regular rate and rhythm, no murmurs/rubs/gallops. Respiratory: Clear to auscultation bilaterally a/p, no wheezes/rales/rhonchi. No increased work of breathing. Symmetrical chest rise. No respiratory distress. Abdomen: Soft, nontender, nondistended. Bowel sounds present. Uterus: Uterine fundus firm, palpable 2 cm below umbilicus. Surgical scar clean and healing well. Lower Extremities: No lower extremity edema or swelling. No deep calf pain. Manuel's negative bilaterally. Results & Data ([facility]) <Stanislaw Grullon MD - Last Filed: 05/17/20 06:57> Vital Signs (Past 12 Hours) Vital Signs Temp Pulse Resp BP Pulse Ox 05/17/20 00:00 36.8 C 70 16 102/64 96 05/16/20 20:20 36.9 C 88 17 103/68 98 <Marika Turcios MD, FACOG - Last Filed: 05/17/20 07:17> Co-Signing Physician Notes Resident Physician Supervision Note: I interviewed and examined the patient. Discussed with Dr. Grullon and agree with findings and plan as documented in the note. Any exceptions or clarifications are listed here: Doing well. Plan d/c. Instructions reviewed. Documented By: Marika Turcios MD, FACOG Resident Activity Tracking <Stanislaw Grullon MD - Last Filed: 05/17/20 06:57> Resident Involvement: Resident Care Provided Care Provided: Adult Hospital Medicine and OB Delivery
[2020-05-17] MEDS: DOCUSATE SODIUM 100 MG CAP PO SCH (07:58)
[2020-05-17] MEDS: SIMETHICONE 80 MG CHEW PO SCH (07:58)
[2020-05-17] MEDS: MULTIVITAMIN CHEWABLE TAB PO SCH (07:58)
[2020-05-17] MEDS: FERROUS SULFATE 325 MG TAB PO SCH (07:58)
--- NOTE | 2020-05-20 14:58 | Discharge Summary ---
Date of Service May 20, 2020 Admission HPI Per Admitting Provider Phyllis is a 24 y/o female currently at 40-3/7 WGA with an MELINA 05/11/20 as determined by LMP who is here for IOL and TOLAC. Her has otherwise been uncomplicated. Her first delivery in 2018 was performed via [facility] at [facility] (see scanned operative report 05/16/2018) in the setting of non-reassuring heart tracings and post-dates. Denies contractions; good movement; denies fluid loss; no bloody show Had regular appointments with OB. Labs: (Date 10/10/19) Blood type: O+ Antibody screen: negative H.8 Hct: 41.2 WBC: 10.3 Plt: 208 Rubella: immune VDRL/RPR: NR Gonorrhea: not detected Chlamydia: not detected HIV: negative HbSAg: negative GBS: POSITIVE SARS-CoV-2 RT-PCR (04/27): Not detected Declined genetic screens, including cff-DNA, CF, SMA Admission Exam (Per Admitting) Constitutional General: Alert, oriented. No acute distress. Cardiac: Regular rate and rhythm, no murmurs/rubs/gallops. Respiratory: Clear to auscultation bilaterally a/p, no wheezes/rales/rhonchi. No increased work of breathing. Symmetrical chest rise. No respiratory distress. Pelvic: Dilation 1 cm; Effacement 25%; Station -[address] Grigsby Lower Extremities: No lower extremity edema or swelling. No deep calf pain. Manuel's negative bilaterally External FHT and external uterine monitors used; Category I tracing; +FHT variability; + accelerations; no decels. Discharge Data Consultations 05/14/20 14:41 Consult Anesthesiology Stat Procedures Performed Operation Date: 05/15/20 07:50 Actual Procedures p Section in LD(Bilateral) - Esperanza Grigsby MD Operation Date: 05/17/20 07:30 <No data on this case meets the specified criteria> Hospital Course (1) S/P : Pt was previously counseled extensively regarding induction for TOLAC, see previous notes for details. Induction was begun with oxytocin and horn bulb. PCN given for prophylaxis. Following bulb expulsion, oxytocin was titrated and she underwent spontaneous rupture of membranes. Oxytocin was titrated as fetus tolerated it, however required discontinuation a few times. Epidural was obtained for pain control. However, due to intolerance and NRFHT, augmentation could not be progressed and so recommendation was for CS. See operative report for details. course was uncomplicated and she was discharged home on PPD2. Coding Level of Care Code None Diagnoses S/P Z98.891
== END 2020-05-17 11:45 | disposition home or self-care (01) | DRG 788 ==
LOC: 4S1 12:51 → 4S2 05-15 12:08 → EDSTATUS 05-17 07:30